=== PATIENT | female | born 1985 | race Caucasian/White ===

== ENCOUNTER 2018-08-08 15:59 | Emergency (ER) | payer MEDICAID, SELFPAY ==
[2018-08-08 16:41] VITALS: BP 126/80; PULSE 93; RESP 16; TEMP 36.9; O2SAT 97
[2018-08-08] MEDS: Ibuprofen 600 MG TAB PO (19:11)
--- NOTE | 2018-08-08 19:12 | ED.GENADUL_ITS ---
Discharge Plan Disposition Patient Disposition: HOME Condition: Stable Discharge Details Chief Complaint: RespSymp Clinical Impression: Chest wall muscle strain Primary Care Provider: Eduarda Staley ED Provider: Whitney Beauchamp Home Meds and New Rx's Prescriptions: No Action albuterol sulfate [ProAir HFA] 200 PUFF HFA aerosol inhaler 2 inh Inhalation Q4H PRN PRNRF: 0 Discharge Instructions Instructions: Muscle Strain (ED), Thoracic Back Strain (ED) Additional Instructions: Alternate ice and heat to the affected area several times daily. Take Motrin or Tylenol as needed and directed for pain. Follow-up with her primary care doctor in 1 week for reevaluation. Return to the emergency department with any worsening or new concerning symptoms. Stand Alone Forms: Work Release Discharge Data Discharge Date/Time-TO BE ENTERED AT DEPARTURE: 08/08/18 19:24 Discharge Physician: Whitney Beauchamp Medical Decision Making MDM Narrative Medical decision making narrative: 33-year-old female with a history of asthma who presents for an episode of wheezing and shortness of breath and coughing this morning which she states is consistent with an asthma attack. Patient states she has had some occasional coughing since then but denies fever, chest pain or shortness of breath. She states she is mainly complaining of bilateral rib pain which feels tight and worse with movement and deep breath. She states her bilateral rib pain is 8/10. She denies recent travel, recent surgery, leg pain or oral contraceptive use. Upon entering the room, patient is sitting in chair and texting on phone and appears in no acute distress. She is talking in full sentences, airway intact and she appears nontoxic. Lungs are clear to auscultation without wheezing or rhonchi. She has moderate tenderness to palpation of her bilateral ribs extending from anterior lateral to posterior lateral aspect bilaterally inferior ribs. She has no leg pain or swelling. Patient appears most likely consistent with a musculoskeletal chest wall strain. She does not appear to be in acute respiratory distress with an asthma attack. She declines neb treatment or steroids now and for home. Patient has no DVT/PE risk factors and is PERC negative or low probability well score making PE highly unlikely and patient is agreeable and is declining d dimer at this time. Patient also is requesting a work note for tomorrow. Will give patient a dose of Motrin here and she is instructed on rest, ice, heat and NSAIDs. She was instructed to follow-up with her primary care doctor in 1 week as needed and return immediately to the emergency department with any concerns. HPI - General Adult General Mode of arrival: ambulatory . Date/Time Provider Initiated Documentation: 08/08/18 17:07 . Limitations to Documentation: no limitations . Information obtained by: patient . HPI Narrative: Patient is a 33-year-old female with a history of asthma who presents with what she describes as an asthma attack this morning and bilateral rib pain since coughing since then. States she developed an asthma attack earlier today in which she was wheezing, short of breath and coughing. She states her wheezing and shortness of breath is since improved but has been occasionally coughing and is now complaining of bilateral rib pain. She states her cough is minimal and mainly dry. States the pain is worse with movement and palpation. She took an ibuprofen at noon today with some relief. She states she otherwise has been eating and drinking normally denies fever, chest pain, recent travel, recent surgery, leg pain or swelling. She currently denies any shortness of breath. She denies any history of intubation. Past medical history: Asthma, depression, migraine, anxiety Surgical history: Appendectomy, tubal ligation (denies ) Social history: Quit tobacco 2012, occasional alcohol, denies drugs Medications: Albuterol as needed Allergies: None PCP: Eduarda Staley Related Data Home Medications Medication Instructions Recorded Confirmed albuterol sulfate [ProAir HFA] 2 inh INHALATION Q4H PRN PRN 08/24/13 08/08/18 Allergies Allergy/AdvReac Type Severity Reaction Status Date / Time environmental Allergy Uncoded 08/08/18 16:44 General Stated Complaint: RespSymp RODERICK: 3 Review of Systems Review of Systems All systems reviewed & are unremarkable except as noted in HPI and below Constitutional Denies chills, Denies excessive sweating, Denies fatigue, Denies fever(s), Denies weakness and Denies weight loss Eyes Patient Reports system reviewed and no additional complaints, except as docu and Denies blurry vision ENT Denies vertigo, Denies dizziness, Denies otalgia, Denies nasal congestion, Denies sore throat and Denies throat swelling Cardiovascular Denies chest pain, Denies syncope, Denies rapid heart rate and Denies dyspnea Respiratory Reports cough and Denies dyspnea Gastrointestinal Denies abdominal pain, Denies diarrhea and Denies vomiting Genitourinary Denies hematuria, Denies dysuria and Denies flank pain Musculoskeletal Reports other (Bilateral lower rib pain) Integumentary/Breasts Denies lesions and Denies rash Neurologic Denies behavioral changes, Denies confusion, Denies vertigo, Denies dizziness, Denies syncope and Denies weakness Psychiatric Denies behavioral changes, Denies confusion and Denies depression Endocrine Denies excessive sweating and Denies fatigue Hematologic/Lymphatic Denies easy bruising and Denies lymphadenopathy Allergic/Immunologic Denies throat swelling PFS Social History Smoking/Tobacco Use Status: Never Exam Const General: cooperative and healthy appearing Orientation: alert and awake HENMT Head: normal to inspection Ears: hearing grossly normal bilaterally, external ears normal and TM's normal bilaterally General nose exam: external nose normal Face and sinus: normal facial exam Mouth: oral mucosae normal Teeth and gingiva: dentition normal Throat: posterior oropharynx normal Eyes General: appearance normal, both eyes and all related structures Eyelids: eyelids normal EOM: EOM intact bilaterally Neck Neck: normal visual inspection Lymphatic: no lymphadenopathy noted Chest Chest: normal inspection of the chest and localized rib tenderness with anteroposterior compression (Tenderness to palpation extending from bilateral inferior rib cage from anterior, lateral and posterior aspect. No edema, erythema, ecchymosis or rash noted.) Breast inspection: normal inspection of the breasts Resp Effort & Inspection: normal respiratory effort and able to speak in complete sentences Auscultation: clear to auscultation bilaterally, no crackles, no rales, no rhonchi and no wheezes Cardio Rate: regular rate Rhythm: regular rhythm GI Inspection: normal to inspection Palpation: soft, not firm, no guarding, no hepatosplenomegaly, no masses and nontender Auscultation: normal bowel sounds Skin General skin exam: no rashes or lesions noted Neuro General: alert and awake Cognition: normal cognition Speech: speech normal Gait: normal gait Motor: muscle tone normal throughout Sensory Exam: no sensory deficits noted Extrem General: normal to inspection, full ROM, normal capillary refill, no calf tenderness bilaterally and no edema Psych Appearance: grossly normal Mental Status: mental status grossly normal Speech and Movement: speech and movement normal Affect: normal affect Thought Process: normal Course Vital Signs Temperature 98.4 F 08/08/18 16:41 Pulse 93 H 08/08/18 16:41 Respiratory Rate 16 08/08/18 16:41 Blood Pressure 126/80 08/08/18 16:41 Pulse Oximetry 97 08/08/18 16:41 Temperature 98.4 F 08/08/18 16:41 Pulse 93 H 08/08/18 16:41 Respiratory Rate 16 08/08/18 16:41 Blood Pressure 126/80 08/08/18 16:41 Pulse Oximetry 97 08/08/18 16:41
[2018-08-08 19:21] VITALS: BP 119/89; PULSE 80; RESP 20; TEMP 36.9; O2SAT 97
== END 2018-08-08 19:24 | disposition home or self-care (01) ==
PROVIDERS: Emergency Provider Physician Assistant; PCP Nurse Practitioner Family
DX: S29.012A Strain of muscle and tendon of back wall of thorax, initial encounter (principal); X50.9XXA Other and unspecified overexertion or strenuous movements or postures, initial encounter
CPT/HCPCS: 99282

== ENCOUNTER 2019-08-25 14:17 | Outpatient (REF) | payer MEDICAID, SELFPAY ==
[2019-08-25 20:13] LABS: HCT 45.2 % (36.0-46.0); HGB 14.9 g/dL (12.0-15.5); Mean Corpuscular Hemoglobin 30.3 pg (27.0-33.0); Mean Corpuscular Volume 91.9 fL (80-95); Mean Platelet Volume 9.7 fL (8.0-11.0); Platelet Count 306 x1000/uL (130-400); RBC 4.92 m/cumm (4.00-5.20); RBC Distribution Width 13.2 % (11.7-14.6); White Blood Cell Count 7.74 k/cumm (4.4-10.8)
[2019-08-25 20:34] LABS: ALT 22 U/L (14-59); AST 11 U/L (15-37); Albumin 4.1 g/dL (3.4-5.0); Alkaline Phosphatase 51 U/L (46-116); Anion Gap 12.2 mmol/L (3-11); BUN 14 mg/dL (7-18); Bilirubin, Total 0.4 mg/dL (0.2-1.0); CO2 26.8 mmol/L (21.0-32.0); Chloride 104 mmol/L (98-107); Estimated GFR 51.74 (mL/min/1.73m2); Glucose 88 mg/dL (70-100); Potassium 3.9 mmol/L (3.5-5.1); Sodium 143 mmol/L (136-145); Total Protein 7.6 g/dL (6.4-8.2)
[2019-08-28 10:47] LABS: Syphilis Serology (RPR) Negative (Negative)
[2019-08-28 12:30] LABS: Hepatitis C Ab w Rflx HCV PCR Negative (NEGAT)
[2019-08-28 13:35] LABS: Hepatitis B Surface Ag Negative (NEGAT)
[2019-08-28 13:38] LABS: HIV-1/2 Ag & Ab Screen Negative (NEGAT)
[2019-08-28 13:48] LABS: HBs Antibody, Quant >1000.0 mIU/mL; Hepatitis B Surface Ab Positive
[2019-08-28 15:49] LABS: Chlamydia Result Negative; GC Result Negative; Specimen Description URINE
== END 2019-08-25 14:37 ==
LOC: NCHCN 14:17
PROVIDERS: PCP Nurse Practitioner Family; Visit Provider Nurse Practitioner Family
DX: Z11.3 Encounter for screening for infections with a predominantly sexual mode of transmission (principal); Z11.59 Encounter for screening for other viral diseases; Z11.4 Encounter for screening for human immunodeficiency virus [HIV]; Z13.228 Encounter for screening for other metabolic disorders; Z01.84 Encounter for antibody response examination
CPT/HCPCS: 80053; 85027; 86706; 86803; 87340; 87389; 87491; 87591; 86592

== ENCOUNTER 2019-11-08 07:32 | Outpatient (CLI) | payer MEDICAID, SELFPAY ==
--- NOTE | 2019-11-08 13:09 | DI.US_ITS ---
EXAM: US PELVIS AND TRANSVAGINAL CLINICAL HISTORY: N93.9 AUB, R10.2 PELVIC AND PERINEAL PAIN, TECHNIQUE: Ultrasound performed using standard protocol. Transabdominal and transvaginal exams wer e performed. COMPARISON: PELVIS TRANSVAG from 02/15/2015 FINDINGS: The uterus measures 10.6 x 5.2 x 7 cm. Myometrium appears somewhat heterogeneous. No discrete fibroid s are identified. The endometrial stripe measures 12 millimeters in thickness. A 2.3 centimeter cyst is noted on the left ovary. A section scar is seen in the anterior lower uterine segment. Th ere is no free fluid or hydronephrosis. IMPRESSION: Heterogeneous myometrium could indicate the presence of small fibroids. No focal endometrial abnorma lity is seen.
== END 2019-11-08 07:52 ==
PROVIDERS: PCP Nurse Practitioner Family; Visit Provider Nurse Practitioner Women's Health
DX: N93.9 Abnormal uterine and vaginal bleeding, unspecified (principal); R10.2 Pelvic and perineal pain; N83.292 Other ovarian cyst, left side
CPT/HCPCS: 76830; 76856

== ENCOUNTER 2019-11-20 10:39 | Outpatient (CLI) | payer MEDICAID, SELFPAY ==
[2019-11-20 12:36] LABS: TSH (W/Ref FT4) 1.06 uIU/mL (0.36-3.74)
== END 2019-11-20 10:59 ==
PROVIDERS: PCP Nurse Practitioner Family; Visit Provider Nurse Practitioner Women's Health
DX: R63.4 Abnormal weight loss (principal)
CPT/HCPCS: 36415; 84443

== ENCOUNTER 2019-11-28 12:03 | Outpatient (REF) | payer MEDICAID, SELFPAY ==
--- NOTE | 2019-11-28 11:25 | ENDOMET_PTH ---
PATIENT: Nabila Stevenson LOC: [facility] U#:[id number] AGE/SX: 34/F ROOM: RE11/28/[address]: Jeane Randhawa NP : 1985 BED: DIS: 11/28/2019 SPEC #: [id number] RECD: 11/28/19 12:48 STATUS: ARVIND RESivan #: [id number] LESVIA: 11/28/19 11:[address]: Jeane Randhawa NP DEPT: Surgical Specimen RECD BY: Kayli Mckeon ENTERED: 11/28/19 12:49 SP TYPE: Endomet OTHR DR: Shar Banegas Tissues: 1 - ENDOMETRIUM BX/EMILIA Procedures: GROSS AND MICRO LEVEL 4 Comments: [id number]
== END 2019-11-28 12:23 ==
LOC: LBN 12:03
PROVIDERS: PCP Nurse Practitioner Family; Visit Provider Nurse Practitioner Women's Health
DX: N85.01 Benign endometrial hyperplasia (principal); N93.9 Abnormal uterine and vaginal bleeding, unspecified
CPT/HCPCS: 88305

== ENCOUNTER 2020-09-13 17:03 | Outpatient (REF) | payer MEDICAID, SELFPAY ==
[2020-09-13 18:54] LABS: HCT 44.5 % (36.0-46.0); HGB 14.8 g/dL (11.2-15.7); MCH 29.8 pg (27.0-33.0); MCHC 33.3 % (32.0-36.0); MCV 89.5 fL (80-95); MPV 9.5 fL (8.0-11.0); Platelet Count 348 10^3/uL (130-400); RBC 4.97 10^6/uL (3.93-5.22); RDW 12.2 % (11.7-14.6); RDW-SD 40.3 fL; WBC 5.88 10^3/uL (4.4-10.8)
[2020-09-13 19:18] LABS: TSH (W/Ref FT4) 0.98 uIU/mL (0.36-3.74)
== END 2020-09-13 17:23 ==
LOC: NCHCN 17:03
PROVIDERS: PCP Nurse Practitioner Family; Visit Provider Nurse Practitioner Family
DX: R53.83 Other fatigue (principal)
CPT/HCPCS: 85027; 84443

== ENCOUNTER 2021-01-08 18:27 | Outpatient (REF) | payer MEDICAID, SELFPAY ==
[2021-01-10 15:31] LABS: COVID-19 RT-PCR UVMMC Result Negative (Negative)
== END 2021-01-08 18:28 | disposition home or self-care (01) ==
LOC: LBN 18:27
PROVIDERS: PCP Nurse Practitioner Family; Visit Provider Nurse Practitioner Adult Health
DX: Z20.822 Contact with and (suspected) exposure to COVID-19 (principal)
CPT/HCPCS: U0003

== ENCOUNTER 2021-01-10 19:06 | Outpatient (REF) | payer MEDICAID, SELFPAY ==
[2021-01-10 16:13] LABS: Anion Gap 9.9 mmol/L (3-11); BUN 12 mg/dL (7-18); CO2 28.1 mmol/L (21.0-32.0); CREATININE 0.7 mg/dL (0.55-1.02); Chloride 102 mmol/L (98-107); Glucose 106 mg/dL (74-106); Potassium 3.7 mmol/L (3.5-5.1); Sodium 140 mmol/L (136-145)
[2021-01-10 16:35] LABS: Calcium 8.8 mg/dL (8.5-10.1)
== END 2021-01-10 19:07 | disposition home or self-care (01) ==
LOC: NCHCN 19:06
PROVIDERS: PCP Nurse Practitioner Family; Visit Provider Nurse Practitioner Family
DX: N28.89 Other specified disorders of kidney and ureter (principal)
CPT/HCPCS: 80048

== ENCOUNTER 2021-08-06 18:58 | Outpatient (REF) | payer MEDICAID, SELFPAY ==
[2021-08-08 12:11] LABS: COVID-19 RT-PCR UVMMC Result Negative (Negative)
== END 2021-08-06 18:59 | disposition home or self-care (01) ==
LOC: LBN 18:58
PROVIDERS: PCP Nurse Practitioner Family; Visit Provider Physician Assistant Medical
DX: Z20.822 Contact with and (suspected) exposure to COVID-19 (principal)
CPT/HCPCS: U0003

== ENCOUNTER 2021-12-24 10:10 | Outpatient (REF) | payer MEDICAID, SELFPAY ==
--- NOTE | 2021-12-24 09:30 | PAPFT_PTH ---
PATIENT: Nabila Stevenson LOC: [facility] U#:[id number] AGE/SX: 36/F ROOM: RE12/24/[address]: Jeane Randhawa NP : 1985 BED: DIS: 12/24/2021 SPEC #: [id number] RECD: 12/24/21 12:52 STATUS: ARVIND RESivan #: [id number] LESVIA: 12/24/21 09:[address]: Jeane Randhawa NP DEPT: [facility] Cytology RECD BY: Kayli Mckeon ENTERED: 12/24/21 12:52 SP TYPE: PAPFT OTHR DR: Shar Banegas Tissues: 1 - CX/ENDOCX FOR PAP SMEARS Procedures: PAP THIN PREP/UVM Screening HPV DNA PROBE Comments: [id number]
== END 2021-12-24 10:11 | disposition home or self-care (01) ==
LOC: LBN 10:10
PROVIDERS: PCP Nurse Practitioner Family; Visit Provider Nurse Practitioner Women's Health
DX: Z12.4 Encounter for screening for malignant neoplasm of cervix (principal); Z11.51 Encounter for screening for human papillomavirus (HPV)
CPT/HCPCS: 88142; 87624

== ENCOUNTER 2021-12-29 11:14 | Emergency (ER) | payer MEDICAID, SELFPAY ==
[2021-12-29 11:24] VITALS: BP 124/86; PULSE 83; RESP 18; TEMP 37; O2SAT 94
--- NOTE | 2021-12-29 12:17 | DI.RAD_ITS ---
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 TECHNIQUE: 2D digital imaging was performed. COMPARISON: No exams were available for comparison FINDINGS: No evidence of fracture nor carpal dislocation. No significant ulnar variance. There is mild develo pmental variance at the radiocarpal joint surface which is slightly downsloping towards the distal ul na but not associated with ulnar variance and there are no obvious degenerative changes in the radioc arpal joint. Scapholunate distance is upper normal. No abnormal radiographic findings in these bone s nor in the other carpal row bones. No degenerative changes. No osseous lesions. IMPRESSION: DATA REPOSITORY: RADIATION DOSE DELIVERED:
--- NOTE | 2021-12-29 12:28 | W.ED.GENAD ---
Discharge Plan Disposition Patient Disposition: HOME Condition: Stable Discharge Details Clinical Impression: Injury of wrist, right Primary Care Provider: Shar Banegas ED Provider: Benny Gale Home Meds and New Rx's Prescriptions: Continued montelukast 10 mg tablet 10 mg PO QHS RF: 0 nystatin-triamcinolone 100,000-0.1 unit/g-% cream 1 applic TP BID RF: 0 fluticasone propionate [Flonase Allergy Relief] 50 mcg/actuation spray,suspension 1 spray SIM BID RF: 0 loratadine [Allergy Relief (loratadine)] 10 mg tablet 10 mg PO DAILY RF: 0 albuterol sulfate [ProAir HFA] 200 PUFF HFA aerosol inhaler 2 inh Inhalation Q4H PRN PRNRF: 0 Discharge Instructions Instructions: Wrist Injury (ED) Additional Instructions: X-ray is unremarkable. Wear splint as needed, advance activity as tolerated. [id number] Tylenol and/or Motrin as directed for discomfort. Please watch for new or worsening symptoms and return to the ER for any concerns. Rest, elevate, cool compresses every 2 hours for 20 minutes. 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 Denies any other injury. No medications today prior to arrival. Neuro, vascular, tendon intact. Plan is to obtain x-ray injury X-ray read by radiology as no evidence of fracture nor carpal dislocation. Discussed x-ray findings with patient. Discussed disposition. Patient placed into a universal wrist splint. We discussed conservative measures and the importance of outpatient follow-up. Standard discharge and return precautions provided This documentation was generated using [employer] system, please disregard any oddities of phrase or misspellings. Medical Records Medical records reviewed: Yes I reviewed the patient's medical records. 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 TECHNIQUE: 2D digital imaging was performed. COMPARISON: No exams were available for comparison FINDINGS: No evidence of fracture nor carpal dislocation. No significant ulnar variance. There is mild developmental variance at the radiocarpal joint surface which is slightly downsloping towards the distal ulna but not associated with ulnar variance and there are no obvious degenerative changes in the radiocarpal joint. Scapholunate distance is upper normal. No abnormal radiographic findings in these bones nor in the other carpal row bones. No degenerative changes. No osseous lesions. HPI General Mode of arrival: ambulatory. Date/Time Provider Initiated Documentation: 12/29/21 11:29. Limitations to Documentation: no limitations. Information obtained by: patient. History of Present Illness described as moderate, with intensity rated at 6. Quality is described as other (throbbing), and is localized to the right and upper extremity. Patient reports no radiation. Patient started experiencing this hour(s) (4) and it has been constant. No relieving factors improve symptom(s), Movement worsens symptoms . Patient notes no other symptoms.. Patient did receive the following treatments prior to arrival, none Related Data Home Medications Medication Instructions Recorded Confirmed albuterol sulfate [ProAir HFA] 2 inh INHALATION Q4H PRN PRN 08/24/13 12/12/19 fluticasone propionate 50 1 spray SIM BID 12/06/19 12/12/19 mcg/actuation nasal spray,suspension loratadine 10 mg tablet 10 mg PO DAILY 12/06/19 12/12/19 montelukast 10 mg tablet 10 mg PO QHS 12/06/19 12/12/19 nystatin-triamcinolone 100,000 1 applic TP BID 12/06/19 12/12/19 unit/g-0.1 % topical cream Allergies Allergy/AdvReac Type Severity Reaction Status Date / Time environmental Allergy Uncoded 12/24/21 08:57 General Stated Complaint: Orthopedic RODERICK: 4 Review of Systems Constitutional Constitutional: Denies fever(s) and Denies weakness Musculoskeletal Musculoskeletal: Denies deformity, Reports arthralgias, Denies numbness, Reports stiffness and Denies tingling Integumentary/Breasts Skin/Breast: Denies erythema Neurologic Neurologic: Denies numbness, Denies tingling and Denies weakness PFSH All Active Problems Injury of wrist, right (Acute) Body mass index (bmi) 60.0-69.9, adult (Acute) Chronic rhinitis (Acute) Post-nasal drip (Acute) Allergic rhinitis due to allergen (Acute) Renal insufficiency (Chronic) Asthma, moderate persistent (Acute) Adult BMI 45.0-49.9 kg/sq m (Acute) Irregular menstruation, unspecified (Acute) Menorrhagia with irregular cycle (Acute) Medical History Acute allergic rhinitis Acute pain of right wrist Candidiasis of skin and nail Depression Knee pain, left Learning disabilities Low back pain Migraine headache Preventative health care Surgical History H/O section H/O tubal ligation Social History Smoking/Tobacco Use Status: Current every day Tobacco Type: cigarettes Tobacco: How many years used: 1 Quit status: has quit before Smoking risk assessment performed?: Yes Alcohol Intake: never Drug use: Never Substance use type: does not use Do you feel safe at home: Yes Do you feel safe in your relationship?: Yes Female Reproductive History Menstrual Duration of menses: 6-7 days control method: permanent sterilization History History 4 Para 4 Hx # Term Pregnancies Multiple births Hx # Pregnancies Ectopic pregnancies AB induced Hx Number of Living Children AB spontaneous Exam Const General: cooperative, healthy appearing, comfortable and no acute distress Orientation: alert and awake HENMT Head: normal to inspection, normocephalic and atraumatic Eyes Conjunctivae: conjunctivae normal Neck Neck: normal visual inspection, trachea midline and supple Resp Effort & Inspection: normal respiratory effort and able to speak in complete sentences Cardio Rate: regular rate Rhythm: regular rhythm Skin General skin exam: no rashes or lesions noted Neuro General: patient alert, patient awake, moves all extremities and no focal motor deficits Cognition: normal cognition Speech: speech normal Gait: normal gait Motor: muscle tone normal throughout Sensory Exam: no sensory deficits noted Extrem General: full ROM and capillary refill normal Other: Right wrist, normal inspection. There is no swelling, ecchymosis, erythema. Diffuse discomfort, made worse with movement. There is no obvious deformity or bony point tenderness. Skin is intact. Normal radial pulse and capillary refill. Neuro, vascular, tendon Psych Appearance: grossly normal Mental Status: mental status grossly normal Course Vital Signs Vital signs: Vital Signs Temperature 37 C 12/29/21 11:24 Pulse 83 12/29/21 11:24 Respiratory Rate 18 12/29/21 11:24 Blood Pressure 124/86 12/29/21 11:24 Pulse Oximetry 94 12/29/21 11:24 Temperature 37 C 12/29/21 11:24 Temperature Source Temporal Artery Scan 12/29/21 11:24 Pulse 83 12/29/21 11:24 Respiratory Rate 18 12/29/21 11:24 Respiratory Effort Non-Labored 12/29/21 12:21 Blood Pressure 124/86 12/29/21 11:24 Blood Pressure Position Sitting 12/29/21 11:24 Pulse Oximetry 94 12/29/21 11:24 Oxygen Delivery Method Room Air 12/29/21 11:24 Oxygen Flow Rate 0 12/29/21 11:24
== END 2021-12-29 17:03 | disposition home or self-care (01) ==
PROVIDERS: Emergency Provider Physician Assistant; PCP Nurse Practitioner Family
DX: S69.81XA Other specified injuries of right wrist, hand and finger(s), initial encounter (principal); X50.0XXA Overexertion from strenuous movement or load, initial encounter; Y99.0 Civilian activity done for income or pay
CPT/HCPCS: 29125; 81025; 99283; 73110

== ENCOUNTER 2022-12-10 13:28 | Outpatient (REF) | payer MEDICAID, SELFPAY ==
[2022-12-10 18:16] LABS: Abs Immature Grans 0.02 10^3/uL (0.0-0.06); Absolute Basophil Count 0.07 10^3/uL (0.0-0.2); Absolute Eosinophil Count 0.24 10^3/uL (0.0-0.7); Absolute Lymphocyte Count 2.28 10^3/uL (1.2-3.4); Absolute Monocyte Count 0.39 10^3/uL (0.1-0.8); Absolute Neutrophil Count 3.57 10^3/uL (1.2-6.7); Basophils % 1.1; Eosinophils % 3.7; HCT 42.3 % (36.0-46.0); Immature Grans % 0.3; Lymphocytes % 34.7; MCH 29.3 pg (27.0-33.0); MCHC 33.1 % (32.0-36.0); MCV 89 fL (80-95); Monocytes % 5.9; Neutrophils % 54.3; Platelet Count 324 10^3/uL (130-400); RBC 4.78 10^6/uL (3.93-5.22); RDW 12.5 % (11.7-14.6); RDW-SD 40.6 fL; WBC 6.57 10^3/uL (4.4-10.8)
[2022-12-10 18:43] LABS: ALT 21 U/L (14-59); AST 13 U/L (15-37); Albumin 3.8 g/dL (3.4-5.0); Alkaline Phosphatase 61 U/L (46-116); Anion Gap 6.6 mmol/L (3-11); BUN 12 mg/dL (7-18); Bilirubin, Total 0.2 mg/dL (0.2-1.0); CO2 30.4 mmol/L (21.0-32.0); CREATININE 0.8 mg/dL (0.55-1.02); Calcium 8.9 mg/dL (8.5-10.1); Calculated LDL 110 mg/dL (<100); Chloride 104 mmol/L (98-107); Cholesterol 169 mg/dL (<200); Estimated GFR 97.87 (mL/min/1.73m2); Glucose 100 mg/dL (74-106); HDL Cholesterol 40 mg/dL (40-60); Potassium 4.1 mmol/L (3.5-5.1); Sodium 141 mmol/L (136-145); TSH (W/Ref FT4) 0.93 uIU/mL (0.36-3.74); Total Protein 6.9 g/dL (6.4-8.2); Triglyceride 99 mg/dL (<150)
[2022-12-10 18:45] LABS: Hemoglobin A1C 5.3 % (<5.7)
== END 2022-12-10 13:29 | disposition home or self-care (01) ==
LOC: NCHCN 13:28
PROVIDERS: Visit Provider Nurse Practitioner Family
DX: R53.83 Other fatigue (principal); E66.8 Other obesity; R79.89 Other specified abnormal findings of blood chemistry
CPT/HCPCS: 80053; 80061; 83036; 84443; 85025

== ENCOUNTER 2023-04-08 01:51 | Outpatient (CLI) | payer MEDICAID, SELFPAY ==
--- NOTE | 2023-04-08 | DI.US_ITS ---
Exam(s) US PELVIS TRANSVAGINAL EXAM: US PELVIS TRANSVAGINAL CLINICAL HISTORY: LEFT PELVIC PAIN, R10.2. TECHNIQUE: Transabdominal and transvaginal pelvic ultrasound was performed using standard protocol. COMPARISON: US US PELVIS TRANSVAGINAL from 11/08/2019 FINDINGS: UTERUS: Position: Anteverted. Size: 10.6 long by 5.3 AP by 7.0 transverse cm Endometrium: 1.0 cm. Normal for patient's menstrual status. Myometrium: Unremarkable. Cervix: Cervical nabothian cyst is present. OVARIES: Right: 2.3 x 1.8 x 1.5 cm Cyst or mass: No suspicious cystic or solid masses. Left: 4.4 x 3.1 x 3.6 cm Cyst or mass: No suspicious cystic or solid masses. There is a 3.4 x 1.9 x 2.6 cm simple cyst. DOPPLER: Color: Symmetric and uniform flow to both ovaries. CUL-DE-SAC: Free fluid: None. Other: None. IMPRESSION: 1. Normal-appearing uterus with endometrial stripe within normal limits. 2. Unremarkable bilateral ovaries. 3.4 x 1.9 x 2.6 cm simple left ovarian cyst. DATA REPOSITORY:
== END 2023-04-08 02:11 ==
PROVIDERS: Visit Provider Nurse Practitioner Family
DX: R10.2 Pelvic and perineal pain (principal)
CPT/HCPCS: 76830; 76856

== ENCOUNTER 2023-09-07 06:55 | Emergency (ER) | payer MEDICAID, SELFPAY ==
[2023-09-07 06:56] VITALS: BP 137/100; PULSE 88; RESP 18; TEMP 36.8; O2SAT 96
--- NOTE | 2023-09-07 07:15 | DI.RAD_ITS ---
Exam(s) XR WRIST RT COMPLETE EXAM: XR WRIST RT COMPLETE CLINICAL HISTORY: pain. TECHNIQUE: 2D digital imaging was performed. COMPARISON: CR XR WRIST RT COMPLETE from 12/29/2021 FINDINGS: 3 views No evidence of acute fracture nor dislocation nor significant ulnar variance. Scaphoid and scapholun ate distance normal. No osseous lesions nor erosions. No radiopaque foreign body evident. No degenerative changes. Bone density is normal. IMPRESSION: No acute osseous findings in the wrist. DATA REPOSITORY: RADIATION DOSE DELIVERED:
--- NOTE | 2023-09-07 07:16 | ED.GENADUL_ITS ---
Discharge Plan Disposition Patient Disposition: Home Discharge Details Clinical Impression: Right wrist sprain Primary Care Provider: Florecita Mayfield ED Provider: Cathi Mock Home Meds and New Rx's Prescriptions: No Action montelukast 10 mg tablet 10 mg PO QHS nystatin-triamcinolone 100,000-0.1 unit/g-% cream 1 applic TP BID fluticasone propionate [Flonase Allergy Relief] 50 mcg/actuation spray,suspension 1 spray SIM BID loratadine [Allergy Relief (loratadine)] 10 mg tablet 10 mg PO DAILY albuterol sulfate [ProAir HFA] 200 PUFF HFA aerosol inhaler 2 inh Inhalation Q4H PRN PRN nystatin 100,000 unit/gram powder TOPICAL Patient Comments: APPLY LIBERALLY TO CLEAN DRY SKIN TO THE AFFECTED AREA TWICE DAILY DIRECTED Discharge Instructions Instructions: Wrist Sprain (ED) Additional Instructions: Take Tylenol or Motrin as needed for pain. Wear splint for comfort. Follow-up with orthopedics if symptoms do not improve. Stand Alone Forms: Work Release Referrals: Benny Gale PA [[employer]] - (If needed) Discharge Data Discharge Physician: Cathi Mock Medical Decision Making 38-year-old female presents for evaluation of right wrist pain. Patient neurologically intact. X-ray negative for fracture. Patient is placed in a splint by nursing for comfort. She is referred to orthopedics if symptoms persist. She is given a note for work. HPI General Date/Time Provider Initiated Documentation: 09/07/23 07:12 . HPI Narrative: 38-year-old female presents for evaluation of right wrist pain. 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 Denies any direct trauma. No numbness or tingling. She has pain with r yesi of motion of her wrist primarily over the ulnar side. Denies any other injury. Related Data Home Medications Medication Instructions Recorded Confirmed albuterol sulfate 90 mcg/actuation 2 inh inhalation Q4H PRN PRN 08/24/13 09/07/23 aerosol inhaler (ProAir HFA) fluticasone propionate 50 1 spray intranasal BID 12/06/19 09/07/23 mcg/actuation nasal spray,suspension (Flonase Allergy Relief) loratadine 10 mg tablet (Allergy 10 mg PO DAILY 12/06/19 09/07/23 Relief (loratadine)) montelukast 10 mg tablet 10 mg PO QHS 12/06/19 09/07/23 nystatin-triamcinolone 100,000 1 applic topical BID 12/06/19 09/07/23 unit/g-0.1 % topical cream nystatin 100,000 unit/gram topical topical 09/07/23 powder Allergies Allergy/AdvReac Type Severity Reaction Status Date / Time environmental Allergy Uncoded 09/07/23 07:04 General Stated Complaint: Orthopedic RODERICK: 4 Review of Systems Narrative: Review of systems as above. PFSH All Active Problems (Updated 09/07/23 @ 08:29 by Cathi Mock MD) Right wrist sprain (Acute) Body mass index (bmi) 60.0-69.9, adult (Acute) Chronic rhinitis (Acute) Post-nasal drip (Acute) Allergic rhinitis due to allergen (Acute) Renal insufficiency (Chronic) Asthma, moderate persistent (Acute) Adult BMI 45.0-49.9 kg/sq m (Acute) Irregular menstruation, unspecified (Acute) Menorrhagia with irregular cycle (Acute) Medical History Acute allergic rhinitis Learning disabilities Depression Migraine headache Preventative health care Acute pain of right wrist Candidiasis of skin and nail Low back pain Knee pain, left Surgical History H/O section H/O tubal ligation Social History Smoking/Tobacco Use Status: Current every day Tobacco Type: cigarettes Tobacco: How many years used: 1 Quit status: has quit before Smoking risk assessment performed?: Yes Alcohol Intake: never Drug use: Never Substance use type: does not use Do you feel safe at home: Yes Do you feel safe in your relationship?: Yes Female Reproductive History Menstrual Duration of menses: 6-7 days control method: permanent sterilization History History 4 Para 4 Hx # Term Pregnancies Multiple births Hx # Pregnancies Ectopic pregnancies AB induced Hx Number of Living Children AB spontaneous Exam Narrative Exam Narrative: General: non-toxic, no respiratory distress, comfortable HEENT: normocephalic, atraumatic, lids and lashes normal, PERRL, EOMI, anicteric sclera, no conjunctival injection, moist oral mucosa Musculoskeletal: Pain to palpation over dorsum right ulnar wrist, mild pain with range of motion of fingers, no metacarpal tenderness, 2+ radial pulses, no snuffbox tenderness, sensation intact, otherwise full range of motion of arms and legs, no tenderness to palpation. no clubbing, cyanosis, or edema Neurologic: appropriate for age, strength normal Psych: alert and oriented Skin: no petechiae, no lesions, warm and dry Course Vital Signs Vital signs: Vital Signs Temperature 36.8 C 09/07/23 06:56 Pulse 88 09/07/23 06:56 Respiratory Rate 18 09/07/23 06:56 Blood Pressure 137/100 H 09/07/23 06:56 Pulse Oximetry 96 09/07/23 06:56 Temperature 36.8 C 09/07/23 06:56 Pulse 88 09/07/23 06:56 Respiratory Rate 18 09/07/23 06:56 Respiratory Effort Normal 09/07/23 07:01 Blood Pressure 137/100 H 09/07/23 06:56 Blood Pressure Position Sitting 09/07/23 06:56 Pulse Oximetry 96 09/07/23 06:56 Oxygen Delivery Method Room Air 09/07/23 06:56 Oxygen Flow Rate 0 09/07/23 06:56 Pain Level 7 09/07/23 06:56
== END 2023-09-07 08:49 | disposition home or self-care (01) ==
LOC: ER 07:24
PROVIDERS: Emergency Provider Emergency Medicine Emergency Medical Services; PCP Nurse Practitioner Family
DX: S62.501A Fracture of unspecified phalanx of right thumb, initial encounter for closed fracture (principal); F17.210 Nicotine dependence, cigarettes, uncomplicated; X50.9XXA Other and unspecified overexertion or strenuous movements or postures, initial encounter; Y93.89 Activity, other specified; Y92.018 Other place in single-family (private) house as the place of occurrence of the external cause; Y99.9 Unspecified external cause status
CPT/HCPCS: 29125; 99283; 73110

== ENCOUNTER 2023-09-30 14:49 | Emergency (ER) | payer MEDICAID, SELFPAY ==
[2023-09-30 14:50] VITALS: BP 136/94; PULSE 89; RESP 30; O2SAT 98
[2023-09-30] MEDS: diazePAM 10 MG/2 ML SYR 2.5 MG IM (16:51)
[2023-09-30] MEDS: Ketorolac 15 MG/ML VIAL IM (16:51)
[2023-09-30] MEDS: Lidocaine 5% Patch 1 PATCH TP (16:51)
[2023-09-30] MEDS: Acetaminophen 500 MG TAB 1000 MG PO (16:52)
--- NOTE | 2023-09-30 17:31 | ED.GENADUL_ITS ---
Discharge Plan Disposition Patient Disposition: Home Condition: Good Discharge Details Clinical Impression: Back pain Primary Care Provider: Florecita Mayfield ED Provider: Codie Washington Home Meds and New Rx's Prescriptions: No Action montelukast 10 mg tablet 10 mg PO QHS nystatin-triamcinolone 100,000-0.1 unit/g-% cream 1 applic TP BID fluticasone propionate [Flonase Allergy Relief] 50 mcg/actuation spray,suspension 1 spray SIM BID loratadine [Allergy Relief (loratadine)] 10 mg tablet 10 mg PO DAILY albuterol sulfate [ProAir HFA] 200 PUFF HFA aerosol inhaler 2 inh Inhalation Q4H PRN PRN nystatin 100,000 unit/gram powder TOPICAL Patient Comments: APPLY LIBERALLY TO CLEAN DRY SKIN TO THE AFFECTED AREA TWICE DAILY DIRECTED Discharge Instructions Instructions: Back Pain (ED) Additional Instructions: Tylenol and ibuprofen over the counter for pain, follow the directions on the bottle. Cyclobenzaprine for muscle spasm; follow the directions on the bottle. Call your primary care doctor tomorrow to schedule an appointment within one week to follow up on your visit today. Return to the emergency department for new or worsening symptoms including intolerable pain, inability to walk, urinary symptoms, or if you have any other concerns. Stand Alone Forms: Work Release Discharge Data Discharge Date/Time-TO BE ENTERED AT DEPARTURE: 09/30/23 18:22 Medical Decision Making 38yo F with hx of asthma presenting with acute low back pain, onset while twisting to get out of bed this morning. No neurologic symptoms. No red flags for back pain. Vital signs and physical exam reassuring, normal neurologic exam, right lumbar parsaspinal tenderness and spasm. Low suspicion for serious pathology, cauda equina, spinal epidural abscess, cord issue, fracture, etc. Would not get CT or MRI imaging at this time, or bloodwork. Will treat symptoms with tylenol, toradol, valium for spasm, lidocaine patch. On reassessment she reports her pain has much improved, sitting comfortably in bed. Muscle spasm no longer palpable. Advised symptomatic treatment at home, discharged with short course of flexeril, instructed not to drive while on this medication. Discharged home; discharge instructions including return precautions were reviewed with patient who verbalized understanding. All questions were answered and they are in full agreement with the plan. HPI General Mode of arrival: ambulatory . Date/Time Provider Initiated Documentation: 09/30/23 14:58 . Limitations to Documentation: no limitations . Information obtained by: patient . HPI Narrative: 38yo F with hx of asthma presenting with acute low back pain. Started this morning when she got out of bed, low, right sided, non-radiating. Has been persistent since then with waves of increased pain brought on by movement. Does not recall any injury or trauma to the area (onset did occur while twisting to get up), no unusual exertion yesterday. No numbness, tingling, or weakness. No bowel or bladder issues. No history of spinal instrumentation/surgery or IVDU at any point. She is otherwise in her usual state of health with no fevers, chills, rash, nausea, vomiting, dysuria, hematuria, pain elsewhere, or other concerns. Related Data Home Medications Medication Instructions Recorded Confirmed albuterol sulfate 90 mcg/actuation 2 inh inhalation Q4H PRN PRN 08/24/13 09/07/23 aerosol inhaler (ProAir HFA) fluticasone propionate 50 1 spray intranasal BID 12/06/19 09/07/23 mcg/actuation nasal spray,suspension (Flonase Allergy Relief) loratadine 10 mg tablet (Allergy 10 mg PO DAILY 12/06/19 09/07/23 Relief (loratadine)) montelukast 10 mg tablet 10 mg PO QHS 12/06/19 09/07/23 nystatin-triamcinolone 100,000 1 applic topical BID 12/06/19 09/07/23 unit/g-0.1 % topical cream nystatin 100,000 unit/gram topical topical 09/07/23 powder Allergies Allergy/AdvReac Type Severity Reaction Status Date / Time environmental Allergy Uncoded 09/07/23 07:04 General Stated Complaint: Nk/Back Pain RODERICK: 3 Review of Systems Narrative: see HPI PFSH All Active Problems (Updated 09/30/23 @ 18:02 by Codie Washington MD) Back pain (Acute) Right wrist sprain (Acute) Body mass index (bmi) 60.0-69.9, adult (Acute) Chronic rhinitis (Acute) Post-nasal drip (Acute) Allergic rhinitis due to allergen (Acute) Renal insufficiency (Chronic) Asthma, moderate persistent (Acute) Adult BMI 45.0-49.9 kg/sq m (Acute) Irregular menstruation, unspecified (Acute) Menorrhagia with irregular cycle (Acute) Medical History Acute allergic rhinitis Learning disabilities Depression Migraine headache Preventative health care Acute pain of right wrist Candidiasis of skin and nail Low back pain Knee pain, left Surgical History H/O section H/O tubal ligation Social History Smoking/Tobacco Use Status: Current every day Tobacco Type: cigarettes Tobacco: How many years used: 1 Quit status: has quit before Smoking risk assessment performed?: Yes Alcohol Intake: never Drug use: Never Substance use type: does not use Do you feel safe at home: Yes Do you feel safe in your relationship?: Yes Female Reproductive History Menstrual Duration of menses: 6-7 days control method: permanent sterilization History History 4 Para 4 Hx # Term Pregnancies Multiple births Hx # Pregnancies Ectopic pregnancies AB induced Hx Number of Living Children AB spontaneous Exam Narrative Exam Narrative: General: Alert, well appearing, well nourished, standing and rocking back and forth Head: Normocephalic, atraumatic Neck: Trachea midline, Neck supple. ENT: MMM. No oropharygeal lesions or exudate. Cardiac: RRR, no murmurs appreciated Resp: No respiratory distress. CTAB. Abd: Soft, non-distended, nontender : No suprapubic tenderness. Extremities: No deformities. No peripheral edema. Back: Right mid lumbar paraspinal tenderness on exam. Neuro: GCS 15. Fluent speech, no dysarthria. Motor- 5/5 strength symmetric bilateral upper and lower extremities Sensation- Intact to light touch and symmetric multiple dermatomes including upper and lower extremities Gait/station: Normal stance. No truncal ataxia. Steady gait with equal normal steps Course Vital Signs Vital signs: Vital Signs Pulse 89 09/30/23 14:50 Respiratory Rate 30 H 09/30/23 14:50 Blood Pressure 136/94 H 09/30/23 14:50 Pulse Oximetry 98 09/30/23 14:50 Pulse 89 09/30/23 14:50 Respiratory Rate 30 H 09/30/23 14:50 Respiratory Effort Normal 09/30/23 14:52 Blood Pressure 136/94 H 09/30/23 14:50 Blood Pressure Position Sitting 09/30/23 14:50 Pulse Oximetry 98 09/30/23 14:50 Oxygen Delivery Method Room Air 09/30/23 14:50 Oxygen Flow Rate 0 09/30/23 14:50 Pain Level 10 09/30/23 14:50
[2023-09-30 18:02] VITALS: BP 161/116; PULSE 67; O2SAT 98
[2023-09-30] MEDS: Cyclobenzaprine 10 MG TAB, 3 TABS/BTL PO (18:21)
== END 2023-09-30 18:22 | disposition home or self-care (01) ==
PROVIDERS: Emergency Provider Student in an Organized Health Care Education/Training Program; PCP Nurse Practitioner Family
DX: M54.50 Low back pain, unspecified (principal); M62.830 Muscle spasm of back; F17.210 Nicotine dependence, cigarettes, uncomplicated
CPT/HCPCS: 96372; 99283; J1885; J3360

== ENCOUNTER 2024-07-12 10:34 | Outpatient (REF) | payer MEDICAID, SELFPAY ==
[2024-07-12 15:33] LABS: Abs Immature Grans 0.01 10^3/uL (0.0-0.06); Absolute Basophil Count 0.03 10^3/uL (0.0-0.2); Absolute Eosinophil Count 0.25 10^3/uL (0.0-0.7); Absolute Lymphocyte Count 1.92 10^3/uL (1.2-3.4); Absolute Monocyte Count 0.29 10^3/uL (0.1-0.8); Absolute Neutrophil Count 2.41 10^3/uL (1.2-6.7); Basophils % 0.6 %; Eosinophils % 5.1 %; HCT 42.5 % (36.0-46.0); HGB 14.4 g/dL (11.2-15.7); Immature Grans % 0.2 %; Lymphocytes % 39.1 %; MCH 30.8 pg (27.0-33.0); MCHC 33.9 % (32.0-36.0); MCV 91 fL (80-95); MPV 9.8 fL (8.0-11.0); Monocytes % 5.9 %; Neutrophils % 49.1 %; Platelet Count 298 10^3/uL (130-400); RBC 4.68 10^6/uL (3.93-5.22); RDW 12.1 % (11.7-14.6); RDW-SD 40.3 fL; WBC 4.91 10^3/uL (4.4-10.8)
[2024-07-12 15:52] LABS: Iron 41 ug/dL (50-170); Total Iron Binding Capacity 342 ug/dL (250-450); Transferrin Sat 12 % (15-50)
[2024-07-12 16:21] LABS: Hemoglobin A1C 5.1 % (<5.7)
[2024-07-12 16:43] LABS: ALT 33 U/L (14-59); AST 19 U/L (15-37); Albumin 3.5 g/dL (3.4-5.0); Alkaline Phosphatase 51 U/L (46-116); Anion Gap 6.6 mmol/L (3-11); BUN 15 mg/dL (7-18); Bilirubin, Total 0.23 mg/dL (0.2-1.0); CO2 27.4 mmol/L (21.0-32.0); CREATININE 0.9 mg/dL (0.55-1.02); Calcium 8.9 mg/dL (8.5-10.1); Calculated LDL 93 mg/dL (<100); Chloride 105 mmol/L (98-107); Cholesterol 156 mg/dL (<200); Estimated GFR 84.44 (mL/min/1.73m2); Ferritin 52 ng/mL (8-252); Folate 9.4 ng/mL (8.6-20.0); Glucose 111 mg/dL (74-106); HDL Cholesterol 43 mg/dL (40-60); Potassium 4.1 mmol/L (3.5-5.1); Sodium 139 mmol/L (136-145); Total Protein 7.1 g/dL (6.4-8.2); Triglyceride 101 mg/dL (<150); Vitamin B12 351 pg/mL (193-986); Vitamin D 25 Total 17.5 ng/mL (30-100)
[2024-07-12 17:01] LABS: FREE T4 0.99 ng/dL (0.76-1.46)
== END 2024-07-12 10:35 | disposition home or self-care (01) ==
LOC: NCHCN 10:34
PROVIDERS: PCP Family Medicine; Visit Provider Nurse Practitioner Family
DX: Z68.42 Body mass index [BMI] 45.0-49.9, adult (principal); E66.9 Obesity, unspecified
CPT/HCPCS: 80053; 80061; 82306; 82607; 82728; 82746; 83036; 83540; 83550; 84439; 84443; 85025

== ENCOUNTER 2025-09-16 14:20 | Emergency (ER) | payer SELFPAY ==
--- NOTE | 2025-09-16 14:30 | DI.RAD_ITS ---
Exam(s) XR ANKLE RT COMPLETE EXAM: XR ANKLE RT COMPLETE CLINICAL HISTORY: lateral malleolus pain after twisting. TECHNIQUE: 2D digital imaging was performed of the right ankle. Three images were obtained. AP, lateral and oblique views were obtained. COMPARISON: No exams were available for comparison FINDINGS: BONES: No acute fracture is present. No bony destructive lesion is seen. There is an enthesophyte at the posterior calcaneus. JOINTS: The ankle mortise is normally aligned. SOFT TISSUE: Normal. IMPRESSION: There is no acute fracture or dislocation identified. DATA REPOSITORY: RADIATION DOSE DELIVERED:
[2025-09-16 14:31] VITALS: BP 118/85; PULSE 87; RESP 18; TEMP 36.7; O2SAT 96
--- NOTE | 2025-09-16 14:42 | W.ED.GENAD ---
Discharge Plan Disposition Patient Disposition: Home Condition: Stable Discharge Details Clinical Impression: Sprain of ankle Primary Care Provider: BRII ROLLINS ED Provider: Trista Becerra Home Meds and New Rx's Prescriptions: No Action montelukast 10 mg tablet 10 mg PO QHS nystatin-triamcinolone 100,000-0.1 unit/g-% cream 1 applic TP BID fluticasone propionate [Flonase Allergy Relief] 50 mcg/actuation spray,suspension 1 spray SIM BID loratadine [Allergy Relief (loratadine)] 10 mg tablet 10 mg PO DAILY albuterol sulfate [ProAir HFA] 200 PUFF HFA aerosol inhaler 2 inh Inhalation Q4H PRN PRN nystatin 100,000 unit/gram powder 1 applic TOPICAL PRN Patient Comments: APPLY LIBERALLY TO CLEAN DRY SKIN TO THE AFFECTED AREA TWICE DAILY DIRECTED bupropion HCl 150 mg tablet sustained-release 12 hr 150 mg PO BID Patient Comments: TAKE TWO TABLETS BY MOUTH EVERY MORNING AND ONE TABLET BY MOUTH EVERY EVENING Discharge Instructions Instructions: Ankle Sprain ED Additional Instructions: You were seen in the emergency department today for evaluation of an ankle injury and were found to have a sprain. In our department a full physical examination performed, and had x-ray imaging that showed no sign of fracture. You are placed in a brace which you can wear for comfort when you are up and about. It is safe to bear weight on your ankle, but you should do so carefully to avoid reinjury. Please use therapeutic dosing of Tylenol (acetaminophen) & Advil (ibuprofen) in an alternating fashion as follows: Take 1000mg of Tylenol every 6 hours without missing doses- that is 4 times per day. [place] in between the Tylenol doses, take 600mg of Advil also on a 6 hour schedule, that is also 4 times per day. With this strategy, you will be taking something for fever/pain as often as every 3 hours. The daily maximum dosing of Tylenol is 4000mg, and the daily maximum dosing of Advil is 2400mg. Please note that some common cold medications & prescription pain medications may contain acetaminophen and you need to read OTC drug labels and factor that in to maximum daily doses. Please follow-up with your primary care provider in the next few days to discuss this visit and any symptoms that change, worsen, or persist. Thank you for allowing us to be part of your care. Discharge Data Discharge Date/Time-TO BE ENTERED AT DEPARTURE: 09/16/25 16:48 HPI General Mode of arrival: wheelchair. Date/Time Provider Initiated Documentation: 09/16/25 14:28. Limitations to Documentation: no limitations. Information obtained by: patient and old records reviewed. HPI Narrative: This is a 40-year-old female patient with a history of asthma presenting for evaluation of a right ankle injury. 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 She reports that she did not injure any other part of her body when she fell, did not lose consciousness or strike her head. She is complaining of pain in the lateral aspect of her right ankle. She has been able to bear weight but it is uncomfortable. Has not taken any medications for management of this injury, does not have any prior injuries of the ankle. Denies numbness, tingling or weakness distal to the injury. Prior to this event patient was in her normal state of health and this fall was not preceded by any loss of consciousness, dizziness, etc. Related Data Home Medications ?Medication ?Instructions ?Recorded ?Confirmed albuterol sulfate 90 mcg/actuation 2 inh inhalation Q4H PRN PRN 08/24/13 09/16/25 aerosol inhaler (ProAir HFA) fluticasone propionate 50 1 spray intranasal BID 12/06/19 09/16/25 mcg/actuation nasal spray,suspension (Flonase Allergy Relief) loratadine 10 mg tablet (Allergy 10 mg PO DAILY 12/06/19 09/16/25 Relief (loratadine)) montelukast 10 mg tablet 10 mg PO QHS 12/06/19 09/16/25 nystatin-triamcinolone 100,000 1 applic topical BID 12/06/19 09/16/25 unit/g-0.1 % topical cream nystatin 100,000 unit/gram topical 1 applic topical PRN 09/07/23 09/16/25 powder bupropion HCl 150 mg tablet,12 hr 150 mg PO BID 09/16/25 09/16/25 sustained-release Allergies Allergy/AdvReac Type Severity Reaction Status Date / Time environmental Allergy Mild sneezing Uncoded 09/16/25 14:35 General Stated Complaint: Orthopedic RODERICK: 4 Exam Narrative Exam Narrative: Gen: Awake and alert, in no apparent distress HEENT: Non-icteric sclera Neck: Supple Lungs: No apparent respiratory distress, normal respiratory effort. CV: Appears well perfused Abdomen: Non-distended MSK: Moves 4 extremities without apparent limitation in ROM, with the exception of the right ankle which is uncomfortable with movement. She has tenderness to palpation over the lateral malleolus without overlying skin changes, no significant swelling or obvious deformity of the right ankle. She has no Tenderness to palpation of the right midfoot and full range of motion of the toes. Strong DP pulses, preserved sensation distal to the injury. No reproduction of pain with stressing of the syndesmosis, right knee and proximal fibula are atraumatic and nontender. Skin: Visualized skin without rashes, cyanosis. Neuro: No obvious focal deficits or facial asymmetry. Speaks in full, clear sentences. Psych: Appropriate for situation. Course Vital Signs Vital signs: Vital Signs Temperature 36.7 C 09/16/25 14:31 Pulse 87 09/16/25 14:31 Respiratory Rate 18 09/16/25 14:31 Blood Pressure 118/85 09/16/25 14:31 Pulse Oximetry 96 09/16/25 14:31 Temperature 36.7 C 09/16/25 14:31 Temperature Source Oral 09/16/25 14:31 Pulse 87 09/16/25 14:31 Respiratory Rate 18 09/16/25 14:31 Blood Pressure 118/85 09/16/25 14:31 Blood Pressure Position Sitting 09/16/25 14:31 Pulse Oximetry 96 09/16/25 14:31 Pain Level 6 09/16/25 14:31 Medical Decision Making This is a 40-year-old female patient presenting for evaluation of a right ankle injury. My differential includes but is not limited to ankle sprain, fracture, dislocation, contusion. No evidence for neurovascular derangement nor associated other traumatic injuries on my physical examination. This was a mechanical fall and she did not have any preceding medical symptoms to increase my concern for syncope, arrhythmia, ACS, etc. Will provide the patient with Tylenol and ibuprofen as well as a cool pack, and obtain an x-ray of the affected right ankle. - X-ray reviewed by myself and shows no evidence of fracture or dislocation, my workup thus far is most concerning for an ankle sprain. She was provided with a lace up ankle splint and was able to ambulate appropriately without the need for crutches. I counseled her on weightbearing as tolerated, completed her Worker's Compensation form, and counseled her on conservative pain management at home. At this time, the patient has had a full medical evaluation and is safe for discharge to home. They are hemodynamically stable, ambulatory, and tolerating PO. They are understanding of the follow-up plan and return precautions. They left our facility without incident. Trista Becerra MD [facility] All Active Problems (Updated 09/16/25 @ 16:15 by Trista Becerra MD) Sprain of ankle (Acute) Body mass index (bmi) 60.0-69.9, adult (Acute) Chronic rhinitis (Acute) Post-nasal drip (Acute) Allergic rhinitis due to allergen (Acute) Renal insufficiency (Chronic) Asthma, moderate persistent (Acute) Adult BMI 45.0-49.9 kg/sq m (Acute) Irregular menstruation, unspecified (Acute) Menorrhagia with irregular cycle (Acute) Medical History Acute allergic rhinitis Learning disabilities Depression Migraine headache Preventative health care Acute pain of right wrist Candidiasis of skin and nail Low back pain Knee pain, left Surgical History H/O section H/O tubal ligation Social History Smoking/Tobacco Use Status: Current every day Tobacco Type: cigarettes Tobacco: How many years used: 1 Quit status: has quit before Smoking risk assessment performed?: Yes Alcohol Intake: current Alcohol Intake frequency: holidays/special occasions only Alcohol type: beer Drug use: Never Substance use type: does not use Do you feel safe at home: Yes Do you feel safe in your relationship?: Yes Female Reproductive History Menstrual Duration of menses: 6-7 days control method: permanent sterilization History History 4 Para 4 Hx # Term Pregnancies Multiple births Hx # Pregnancies Ectopic pregnancies AB induced Hx Number of Living Children AB spontaneous
[2025-09-16] MEDS: Ibuprofen 600 MG TAB PO (14:48)
[2025-09-16] MEDS: Acetaminophen 500 MG TAB 1000 MG PO (14:48)
== END 2025-09-16 16:48 | disposition home or self-care (01) ==
PROVIDERS: Emergency Provider Emergency Medicine; PCP Nurse Practitioner Family
DX: S93.402A Sprain of unspecified ligament of left ankle, initial encounter (principal); W18.39XA Other fall on same level, initial encounter; Y93.01 Activity, walking, marching and hiking; Y92.89 Other specified places as the place of occurrence of the external cause; Y99.0 Civilian activity done for income or pay
CPT/HCPCS: 99283; 73610